=== PATIENT | male | born 1980 | race Caucasian/White ===

== ENCOUNTER 2020-11-23 11:00 | Emergency (ER) | payer OTHER ==
[2020-11-23 11:12] VITALS: BP 137/91; PULSE 103; RESP 18; TEMP 97.5
--- NOTE | 2020-11-23 11:25 | ED ---
Lower Extremity Injury HPI - General Chief Complaint: Extremity Injury, Lower Stated Complaint: [facility] Foot Injury Time Seen by Provider: 11/23/20 11:13 Source: patient, RN notes reviewed Mode of arrival: ambulatory Limitations: physical limitation - History of Present Illness Initial Comments: 40-year-old male presents emergency from chief complaint of right foot pain. Patient states he tripped over a curb yesterday but the injury. Patient states pain is worse today. No prior fractures he had surgery in the past and foot. Patient denies any paresthesias no other injuries. - Related Data Previous Rx's Medication Instructions Recorded Ibuprofen [Motrin] 600 mg PO Q8HR PRN #20 tab 11/23/20 Allergies Allergy/AdvReac Type Severity Reaction Status Date / Time No Known Allergies Allergy Verified 11/23/20 11:12 Review of Systems ROS Statement: Those systems with pertinent positive or pertinent negative responses have been documented in the HPI. ROS Other: All systems not noted in ROS Statement are negative. 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 Absent: scleral icterus, conjunctival injection, periorbital swelling ENT exam: Present: normal exam, normal oropharynx, mucous membranes moist Neck exam: Present: normal inspection, full ROM. Absent: tenderness, meningismus, lymphadenopathy Respiratory exam: Present: normal lung sounds bilaterally. Absent: respiratory distress, wheezes, rales, rhonchi, stridor Cardiovascular Exam: Present: regular rate, normal rhythm, normal heart sounds. Absent: systolic murmur, diastolic murmur, rubs, gallop, clicks Extremities exam: Present: other (Right foot there is lateral foot tenderness, neurovascular intact no iris deformity no ankle tenderness no proximal tib-fib tenderness Refill less than 2 seconds) Course Vital Signs 11/23/20 11:05 Temperature 97.5 F L Pulse Rate 103 H Respiratory 18 Rate Blood Pressure 137/91 O2 Sat by Pulse 96 Oximetry Medical Decision Making - Medical Decision Making X-ray reviewed no acute fracture. Patient has a right foot sprain. Patient will be Ronak wrap, follow-up with orthopedics no improvement return parameters were discussed. Disposition Clinical Impression: Right foot sprain Disposition: HOME SELF-CARE Condition: Stable Instructions (If sedation given, give patient instructions): Foot Sprain (ED) Additional Instructions: Please return to the Emergency Department if symptoms worsen or any other concerns. Prescriptions: Ibuprofen [Motrin] 600 mg PO Q8HR PRN #20 tab PRN Reason: Pain Is patient prescribed a controlled substance at d/c from ED?: No When asked, does pt state using other controlled substances?: No Referrals: None,Stated [Primary Care Provider] - 1-2 days Evgeny Chris DO [Doctor of Osteopathic Medicine] - 1-2 days Time of Disposition: 11:46
--- NOTE | 2020-11-23 11:44 | XR ---
Right foot HISTORY: Pain and swelling, trauma 3 views the right foot Postop changes are noted to the lateral tarsal region, there are [address] Bone mi neralization, joint spaces and alignment are maintained. Some calcific densities are present along th e Achilles tendon. IMPRESSION: No acute fracture or dislocation is evident. Postop changes.
== END 2020-11-23 11:53 | disposition home or self-care (01) ==
LOC: EC 11:00
DX: S93.601A Unspecified sprain of right foot, initial encounter (principal); F17.200 Nicotine dependence, unspecified, uncomplicated; W18.40XA Slipping, tripping and stumbling without falling, unspecified, initial encounter; Y92.69 Other specified industrial and construction area as the place of occurrence of the external cause; Y99.0 Civilian activity done for income or pay
CPT/HCPCS: 99283